=== PATIENT | female | born 1985 | race Caucasian/White ===

== ENCOUNTER → 2018-04-26 09:14 | Outpatient (CLI) | payer MEDICARE, OTHER, SELFPAY ==
--- NOTE | 2018-04-26 09:23 | XR_ITS ---
XR foot LT min 3V HISTORY: ITS.REASON: LEFT FOOT PAIN ORDERING PHYSICIAN: Marianna Orozco PATIENT AGE: 32 years COMPARISON: Left foot 03/05/2012 FINDINGS: No fracture or dislocation. No lytic or blastic change. There is normal mineralization.. The joint spaces are well-preserved. No significant degenerative/arthritic changes. No erosive changes evident. There is mild soft tissue swelling over the MP joint of the little toe IMPRESSION: Possible bunion at little toe, otherwise negative study
== END ==
PROVIDERS: PCP Family Medicine; Visit Provider Family Medicine
DX: M79.672 Pain in left foot (principal)
CPT/HCPCS: 73630

== ENCOUNTER → 2018-06-17 08:56 | Outpatient (CLI) | payer MEDICARE, OTHER, SELFPAY ==
--- NOTE | 2018-06-17 08:58 | XR_ITS ---
XR foot wt bearing LT 3V HISTORY: ITS.REASON: pain ORDERING PHYSICIAN: Angela Maloney DPM PATIENT AGE: 32 years COMPARISON: 03/05/2012 FINDINGS: No fracture or dislocation. No lytic or blastic change. There is normal mineralization.. The joint spaces are well-preserved. No significant degenerative/arthritic changes. No erosive changes evident. There is mild pes planus IMPRESSION: Mild pes planus otherwise negative
--- NOTE | 2018-06-17 08:58 | XR_ITS ---
XR foot wt bearing RT 3V HISTORY: ITS.REASON: pain ORDERING PHYSICIAN: Angela Maloney DPM PATIENT AGE: 32 years COMPARISON: None FINDINGS: No fracture or dislocation. No lytic or blastic change. There is normal mineralization.. The joint spaces are well-preserved. Bony hypertrophic changes are present along the anterior distal aspect of the talus. Minimal pes planus. IMPRESSION: Bony spurring along the distal and dorsal aspect of the talus with mild pes planus
== END ==
PROVIDERS: Visit Provider Podiatrist
DX: M79.673 Pain in unspecified foot (principal)
CPT/HCPCS: 73630

== ENCOUNTER → 2018-09-09 10:31 | Outpatient (CLI) | payer MEDICARE, OTHER, SELFPAY ==
--- NOTE | 2018-09-09 10:35 | MR_ITS ---
MR foot LT wo/w con HISTORY: Left lateral foot pain, ganglion cyst ITS.REASON: Ganglion Cyst ORDERING PHYSICIAN: Angela Maloney DPM PATIENT AGE: 33 years Comparison: 07/05/2019 TECHNIQUE: Standard multiplanar multiecho sequences are performed without contrast. FINDINGS: No fracture or dislocation. No bone marrow edema. There is a small amount of fluid in the ankle joint at the tibiotalar region anteriorly and at the posterior talocalcaneal joint. Although the study is not tailored to the ankle, the ATFL is not well delineated and may be due to chronic tear. The anterior tibial fibular ligament is also not well delineated. The posterior talofibular and posterior tibiofibular ligaments are intact. The deltoid ligament also appears intact. The talar dome has an unremarkable appearance. There is a focal small area of fluid signal intensity along the dorsolateral aspect and proximal aspect of the fourth metatarsal which measures approximately 11 mm. This is superficial to the extensor digitorum longus tendon. This is isointense on T1 and shows some minimal peripheral enhancement. There is small septation within this lesion. This is consistent with a ganglion cyst. No other significant anomalies are evident. IMPRESSION: 1. Ganglion cyst at the dorsal lateral and base of the fourth metatarsal superficial to the extensor digitorum longus tendon 2. Small ankle joint effusion. 3. The 8 FL and anterior tibiofibular ligaments are not well demonstrated. Chronic tear is a consideration. If this is of clinical concern, dedicated MRI of the ankle may confirm.
== END ==
PROVIDERS: PCP Family Medicine; Visit Provider Podiatrist
DX: M67.472 Ganglion, left ankle and foot (principal)
CPT/HCPCS: 73720; A9576

== ENCOUNTER 2019-01-30 13:00 | Outpatient (RCR) | payer MEDICARE, MEDICAID, OTHER, SELFPAY ==
--- NOTE | 2019-01-28 10:55 | HMH.PTOPWND ---
Rehab Outpt Wound Evaluation Rehab OP Wound Evaluation Start: 01/28/19 10:17 Freq: Status: Active Protocol: Document 01/28/19 10:48 FOX (Rec: 01/28/19 10:55 PHOBERONICA [id number]) Electronically Signed By Chaitanya Case, PT 01/28/19 10:48 Subjective/History History History Pt is a 33 yowf who presents with c/o antwon LE edema for unknown period of time with insidious onset of symptoms. She reports no current c/o pain or numbness/tingling. She reports mild tenderness to palpation throughout the gaitor area of antwon LE with multiple small varicosities noted. She reports PMH of Hypothyroid and left foot ganglion cyst. Pt is also obese. Lymphedema Eval Classification of Lymphedema Secondary Lymphedema Yes Stemmer's sign Stemmer's Sign no Stage of Lymphedema Lymphedema stages Stage I (Pitting edema, reduces w/ elevation, no fibrosis) Skin Changes Dry Skin Yes Other Changes Yes Pain Scale Pain Scale (0-10) 0 Affected Extremities Areas Affected by Lymphedema/Edema Right Lower Extremity Left Lower Extremity Manual Lymphatic Drainage Treatment Area MLD Treatment Area Right Lower Extremity Left Lower Extremity Wound Problems/Impairments Impairments Problems/Impairmments Palpation Tenderness Impaired Walking Increased Edema Lymphedema Present Subjective C/O Pain Impaired Self Care/Self Management Prognosis Rehab Potential Fair Clinical Impression Consistent with Diagnosis Yes Short Term Goals Number of Weeks 4 Decreased Palpation Tenderness Yes: to min Patient to Understand Lymphedema Yes Treatment and Exercises Decrease Girth Measurments by (cm) Yes: by 5 cm [employer] Goals Number of Weeks 8 Decreased Palpation Tenderness Yes: to none Patient to be Ind w/ HEP Yes Patient to be Ind w/ [place] Yes Compression Garments Patient to Adhere Lymphedema Precautions Yes Decrease Girth Measurments by (cm) Yes: by 15 cm Outpatient Therapy Plan of Care Treatment Plan May Include Therapeutic Exercise Including Home
== END 2019-01-30 13:05 | disposition home or self-care (01) ==
LOC: PT 13:00
PROVIDERS: Visit Provider Podiatrist
DX: I89.0 Lymphedema, not elsewhere classified (principal)
CPT/HCPCS: 97140; 97162

== ENCOUNTER → 2019-02-19 10:05 | Outpatient (CLI) | payer MEDICARE, MEDICAID, OTHER, SELFPAY ==
--- NOTE | 2019-02-19 10:10 | US_ITS ---
US extremity RT limited CLINICAL INDICATION: ITS.REASON: SOFT TISSUE NEOPLASM OF RT CALF ORDERING PHYSICIAN: Marianna Orozco PATIENT AGE: 33 years Comparison: None FINDINGS: There is a palpable area reported in posterior right calf. There is mild subcutaneous edema along with some nonspecific diffuse increased echogenicity. This is nonspecific. Consider MRI or CT for more thorough evaluation. IMPRESSION: Nonspecific findings with subcutaneous edema and mild diffuse increased echogenicity corresponding to the area of reported palpable abnormality. Recommend MRI or CT without and with contrast for evaluation
== END ==
PROVIDERS: PCP Family Medicine; Visit Provider Family Medicine
DX: R22.41 Localized swelling, mass and lump, right lower limb
CPT/HCPCS: 76882

== ENCOUNTER → 2019-04-29 17:52 | Outpatient (CLI) | payer MEDICARE, MEDICAID, OTHER, SELFPAY ==
[2019-04-29 18:21] LABS: Basophils % 0.5 % (0.1-2.0); Eosinophils # 0.2 K/mm3 (0.0-0.4); Hematocrit 41.2 % (37.0-47.0); Lymphocytes % 18.4 % (10-50); Mean Corpuscular HGB Conc 31.6 g/dL (31.8-35.4); Mean Corpuscular Hemoglobin 29.4 pg (27.0-31.2); Mean Platelet Volume 8.6 fl (7.4-10.4); Monocytes # 0.3 K/mm3 (0.1-1.0); Monocytes % 5.3 % (1.7-9.3); Neutrophils # 3.9 K/mm3 (1.8-7.8); Neutrophils % 71.9 % (37.0-80.0); Platelet Count 249 K/mm3 (142-424); Red Blood Count 4.43 M/mm3 (4.20-5.40); Red Cell Distribution Width 12.9 % (11.5-17.5); White Blood Count 5.4 K/mm3 (4.8-10.8)
[2019-04-29 19:31] LABS: Alanine Aminotransferase 26 U/L (12-78); Albumin/Globulin Ratio 1.2 (1.1-1.8); Alkaline Phosphatase 82 U/L (46-116); Anion Gap 16.2 mEq/L (5-15); Bilirubin,Total 0.3 mg/dL (0.2-1.0); Blood Urea Nitrogen 9 mg/dL (7-18); Calcium 8.9 mg/dL (8.5-10.1); Carbon Dioxide 25 mmol/L (21.0-32.0); Chloride 102 mmol/L (98-107); Chol/HDL Ratio 3.6 (1-3.5); Cholesterol 174 mg/dL (140-200); Creatinine,Serum 0.46 mg/dL (0.55-1.02); Estimated Glomerular Filt Rate 156 ml/min (>60); Free T4 (Free Thyroxine) 1.22 ng/dl (0.76-1.46); GFR (African American) 189 ML/MIN (>60); Globulin 3.4 gm/dl (1.3-3.2); Glucose 83 mg/dL (74-106); HDL Cholesterol 49 mg/dL (29-89); LDL Cholesterol 104 mg/dL (0-130); Potassium 4.2 mmoL/L (3.5-5.1); Sodium 139 mmol/L (136-145); Thyroid Stimulating Hormone 1.21 uIU/ml (0.358-3.740); Total Protein,Serum 7.4 gm/dL (6.4-8.2); Triglycerides 103 mg/dL (30-200); VLDL Cholesterol 21 mg/dL (0-40)
[2019-04-29 19:32] LABS: Aspartate Amino Transferase 23 U/L (15-37)
== END ==
PROVIDERS: Visit Provider Emergency Medicine
DX: E03.9 Hypothyroidism, unspecified (principal)
CPT/HCPCS: 80053; 80061; 84439; 84443; 85025

== ENCOUNTER → 2020-06-25 12:24 | Outpatient (CLI) | payer MEDICARE, MEDICAID, SELFPAY ==
--- NOTE | 2020-06-25 12:29 | XR_ITS ---
PROCEDURE: XR FOOT RT MIN 3V CLINICAL INDICATION: right foot pain COMPARISON: No exams were available for comparison FINDINGS: There is focal cortical irregularity of the anterior superior border of calcaneus near the calcaneal navicular articulation. This could represent an osteophytic spur but old incompletely fused avulsion chip fracture is a possibility. Otherwise the tarsal bones appear intact. The metatarsals and phalanges all appear intact. The plantar arch is normal. There is a tiny spur of the calcaneus at the insertion of Achilles tendon. IMPRESSION: Osteophytic spurring versus posttraumatic change anterior superior border of the calcaneus Dictated by: Dr. Kyle Painter MD 06/25/2020 13:20 Dr. Kyle Painter MD in [place] 06/25/2020 13:20
[2020-06-25 15:31] LABS: Basophils % 0.4 % (0.1-2.0); Eosinophils # 0.2 K/mm3 (0.0-0.4); Eosinophils % 3.9 % (0.1-12.0); Hematocrit 37.7 % (37.0-47.0); Hemoglobin 12.7 g/dL (12.2-16.2); Lymphocytes # 0.8 K/mm3 (0.7-4.5); Mean Corpuscular HGB Conc 33.6 g/dL (31.8-35.4); Mean Corpuscular Hemoglobin 30.7 pg (27.0-31.2); Mean Corpuscular Volume 91.4 fl (81-99); Mean Platelet Volume 8.7 fl (7.4-10.4); Monocytes # 0.3 K/mm3 (0.1-1.0); Monocytes % 5.4 % (1.7-9.3); Neutrophils # 3.5 K/mm3 (1.8-7.8); Neutrophils % 74.3 % (37.0-80.0); Platelet Count 212 K/mm3 (142-424); Red Blood Count 4.12 M/mm3 (4.20-5.40); Red Cell Distribution Width 12.8 % (11.5-17.5); White Blood Count 4.6 K/mm3 (4.8-10.8)
[2020-06-25 15:46] LABS: Alanine Aminotransferase 13 U/L (12-78); Albumin/Globulin Ratio 1.4 (1.1-1.8); Alkaline Phosphatase 78 U/L (38-126); Anion Gap 12.4 mEq/L (5-15); Aspartate Amino Transferase 26 U/L (14-36); Bilirubin,Total 0.5 mg/dl (0.2-1.3); Blood Urea Nitrogen 9 mg/dl (7-17); Calcium 9.1 mg/dl (8.4-10.2); Carbon Dioxide 25 mmol/L (22.0-30.0); Chloride 104 mmol/L (98-107); Chol/HDL Ratio 2.8 (1-3.5); Cholesterol 167 mg/dl (140-200); Estimated Glomerular Filt Rate 182 ml/min (>60); GFR (African American) 220 ML/MIN (>60); Globulin 2.9 g/dL (1.3-3.2); Glucose 104 mg/dl (74-100); HDL Cholesterol 60 mg/dl (40-60); Potassium 4.4 mmoL/L (3.5-5.1); Sodium 137 mmol/L (136-145); Total Protein,Serum 6.9 g/dl (6.3-8.2); Triglycerides 62 mg/dl (30-150); VLDL Cholesterol 12 mg/dL (0-40)
[2020-06-25 15:57] LABS: Direct LDL Cholesterol 99.34 mg/dL (100-129)
[2020-06-25 16:03] LABS: T4 (Thyroxine) 8.5 ug/dl (5.53-11.0)
[2020-06-25 16:17] LABS: Thyroid Stimulating Hormone 2.91 uIU/mL (0.465-4.68)
== END ==
PROVIDERS: PCP Emergency Medicine; Visit Provider Emergency Medicine
DX: M79.671 Pain in right foot (principal); E07.9 Disorder of thyroid, unspecified; E55.9 Vitamin D deficiency, unspecified; E03.9 Hypothyroidism, unspecified; E66.9 Obesity, unspecified
CPT/HCPCS: 73630; 80053; 80061; 82306; 84436; 84443; 85025

== ENCOUNTER → 2021-05-31 09:12 | Outpatient (CLI) | payer MEDICARE, MEDICAID, SELFPAY ==
[2021-05-31 09:48] LABS: Basophils % 0.5 % (0.1-2.0); Eosinophils # 0.5 K/mm3 (0.0-0.4); Eosinophils % 8.5 % (0.1-12.0); Hematocrit 39.6 % (37.0-47.0); Hemoglobin 12.5 g/dL (12.2-16.2); Lymphocytes % 17.9 % (10-50); Mean Corpuscular HGB Conc 31.5 g/dL (31.8-35.4); Mean Corpuscular Hemoglobin 28.7 pg (27.0-31.2); Mean Corpuscular Volume 91.2 fl (81-99); Mean Platelet Volume 8.1 fl (7.4-10.4); Monocytes # 0.4 K/mm3 (0.1-1.0); Monocytes % 6.5 % (1.7-9.3); Neutrophils # 3.6 K/mm3 (1.8-7.8); Neutrophils % 66.6 % (37.0-80.0); Platelet Count 196 K/mm3 (142-424); Red Blood Count 4.34 M/mm3 (4.20-5.40); Red Cell Distribution Width 12.6 % (11.5-17.5); White Blood Count 5.4 K/mm3 (4.8-10.8)
[2021-05-31 10:58] LABS: Alanine Aminotransferase 13 U/L (12-78); Albumin Level 4.2 g/dl (3.5-5.0); Albumin/Globulin Ratio 1.5 (1.1-1.8); Alkaline Phosphatase 67 U/L (38-126); Anion Gap 10.3 mEq/L (5-15); Aspartate Amino Transferase 22 U/L (14-36); Bilirubin,Total 0.6 mg/dl (0.2-1.3); Blood Urea Nitrogen 7 mg/dl (7-17); Calcium 8.8 mg/dl (8.4-10.2); Carbon Dioxide 26 mmol/L (22.0-30.0); Chloride 106 mmol/L (98-107); Chol/HDL Ratio 3.3 (1-3.5); Cholesterol 179 mg/dl (140-200); Estimated Glomerular Filt Rate 140 ml/min (>60); GFR (African American) 170 ML/MIN (>60); Globulin 2.8 g/dL (1.3-3.2); Glucose 100 mg/dl (74-100); HDL Cholesterol 55 mg/dl (40-60); Potassium 4.3 mmoL/L (3.5-5.1); Sodium 138 mmol/L (136-145); Triglycerides 60 mg/dl (30-150); VLDL Cholesterol 12 mg/dL (0-40)
[2021-05-31 11:09] LABS: Direct LDL Cholesterol 101.48 mg/dL (100-129)
[2021-05-31 11:11] LABS: Free T4 (Free Thyroxine) 1.49 ng/dl (0.78-2.19)
[2021-05-31 11:26] LABS: 25-OH Vitamin D, Total 32.2 ng/mL (30-100)
[2021-05-31 11:28] LABS: Thyroid Stimulating Hormone 2.94 uIU/mL (0.465-4.68)
== END ==
PROVIDERS: Visit Provider Emergency Medicine
DX: E66.01 Morbid (severe) obesity due to excess calories (principal); R53.83 Other fatigue; Z68.44 Body mass index [BMI] 60.0-69.9, adult; K59.00 Constipation, unspecified; E03.9 Hypothyroidism, unspecified; E55.9 Vitamin D deficiency, unspecified
CPT/HCPCS: 36415; 80053; 80061; 82306; 84439; 84443; 85025

== ENCOUNTER → 2022-01-31 14:32 | Outpatient (CLI) | payer MEDICARE, MEDICAID, SELFPAY ==
--- NOTE | 2022-01-31 14:42 | US_ITS ---
FINAL REPORT CLINICAL HISTORY: LLE nodule above inner ankle FINDINGS: Limited sonographic images of the medial ankle were obtained. No cyst, mass, or fluid collection is identified in the area of interest. IMPRESSION: No abnormality identified. Reviewed, Interpreted and Dictated by Antolin Hunter III, MD Transcribed by Dona Saini Authenticated by Antolin Hunter III, MD on 02/01/2022 09:55:26 AM [facility]
== END ==
PROVIDERS: PCP Emergency Medicine; Visit Provider Nurse Practitioner Family
DX: R22.42 Localized swelling, mass and lump, left lower limb (principal)
CPT/HCPCS: 76882

== ENCOUNTER → 2022-02-27 12:30 | Outpatient (CLI) | payer MEDICARE, MEDICAID, SELFPAY ==
[2022-02-27 13:49] LABS: Alanine Aminotransferase 20 U/L (12-78); Albumin Level 4.1 g/dl (3.5-5.0); Albumin/Globulin Ratio 1.6 (1.1-1.8); Alkaline Phosphatase 63 U/L (38-126); Anion Gap 8.8 mEq/L (5-15); Aspartate Amino Transferase 19 U/L (14-36); Bilirubin,Total 0.5 mg/dl (0.2-1.3); Blood Urea Nitrogen 10 mg/dl (7-17); Calcium 8.8 mg/dl (8.4-10.2); Carbon Dioxide 24 mmol/L (22.0-30.0); Chloride 109 mmol/L (98-107); Chol/HDL Ratio 2.7 (1-3.5); Cholesterol 191 mg/dl (140-200); Estimated Glomerular Filt Rate 140 ml/min (>60); GFR (African American) 169 ML/MIN (>60); Globulin 2.6 g/dL (1.3-3.2); Glucose 98 mg/dl (74-100); HDL Cholesterol 70 mg/dl (40-60); Potassium 3.8 mmoL/L (3.5-5.1); Sodium 138 mmol/L (136-145); Total Protein,Serum 6.7 g/dl (6.3-8.2); Triglycerides 68 mg/dl (30-150); VLDL Cholesterol 14 mg/dL (0-40)
[2022-02-27 14:00] LABS: Direct LDL Cholesterol 89.41 mg/dL (100-129)
[2022-02-27 14:04] LABS: Free T4 (Free Thyroxine) 1.46 ng/dl (0.78-2.19)
[2022-02-27 14:19] LABS: Thyroid Stimulating Hormone 1.57 uIU/mL (0.465-4.68)
== END ==
PROVIDERS: Visit Provider Family Medicine
DX: Z00.00 Encounter for general adult medical examination without abnormal findings (principal); E03.9 Hypothyroidism, unspecified; E66.01 Morbid (severe) obesity due to excess calories; Z68.44 Body mass index [BMI] 60.0-69.9, adult
CPT/HCPCS: 36415; 80053; 80061; 84439; 84443

== ENCOUNTER → 2022-08-11 15:30 | Outpatient (CLI) | payer MEDICARE, MEDICAID, SELFPAY ==
[2022-08-11 18:45] LABS: Influenza A, PCR Not Detected (NotDetected); Influenza B, PCR Not Detected (NotDetected)
[2022-08-11 20:44] LABS: Coronavirus 19, PCR Detected (NotDetected)
== END ==
PROVIDERS: PCP Student in an Organized Health Care Education/Training Program; Visit Provider Student in an Organized Health Care Education/Training Program
DX: J39.8 Other specified diseases of upper respiratory tract (principal); R05.9 Cough, unspecified; U07.1 COVID-19
CPT/HCPCS: C9803; U0003; U0005

== ENCOUNTER 2024-01-28 13:49 | Outpatient (CLI) | payer MEDICARE, MEDICAID, SELFPAY ==
[2024-01-28 13:29] LABS: Basophils % 0.6 % (0.1-2.0); Eosinophils # 0.5 K/mm3 (0.0-0.4); Eosinophils % 10.4 % (0.1-12.0); Hematocrit 38.2 % (37.0-47.0); Hemoglobin 12.5 g/dL (12.2-16.2); Lymphocytes # 0.9 K/mm3 (0.7-4.5); Lymphocytes % 20.4 % (10-50); Mean Corpuscular HGB Conc 32.7 g/dL (31.8-35.4); Mean Corpuscular Volume 91.8 fl (81-99); Mean Platelet Volume 8.8 fl (7.4-10.4); Monocytes # 0.3 K/mm3 (0.1-1.0); Monocytes % 6.3 % (1.7-9.3); Neutrophils # 2.7 K/mm3 (1.8-7.8); Neutrophils % 62.3 % (37.0-80.0); Platelet Count 198 K/mm3 (142-424); Red Blood Count 4.16 M/mm3 (4.20-5.40); Red Cell Distribution Width 13.3 % (11.5-17.5); White Blood Count 4.3 K/mm3 (4.8-10.8)
[2024-01-28 14:06] LABS: Hemoglobin A1C 5.4 % (4.0-6.0)
[2024-01-28 14:29] LABS: Alanine Aminotransferase 12 U/L (12-78); Albumin Level 4.2 g/dl (3.5-5.0); Albumin/Globulin Ratio 1.6 (1.1-1.8); Alkaline Phosphatase 75 U/L (38-126); Aspartate Amino Transferase 21 U/L (14-36); Bilirubin,Total 0.5 mg/dl (0.2-1.3); Blood Urea Nitrogen 8 mg/dl (7-17); Calcium 9.2 mg/dl (8.4-10.2); Carbon Dioxide 24 mmol/L (22.0-30.0); Chloride 105 mmol/L (98-107); Estimated Glomerular Filt Rate 138 ml/min (>60); GFR (African American) 167 ML/MIN (>60); Globulin 2.6 g/dL (1.3-3.2); Glucose 88 mg/dl (74-100); Sodium 137 mmol/L (136-145); Total Protein,Serum 6.8 g/dl (6.3-8.2)
[2024-01-28 14:58] LABS: Thyroid Stimulating Hormone 1.49 uIU/mL (0.465-4.68)
== END 2024-01-28 23:59 ==
LOC: LAB.DROPOF 13:50
PROVIDERS: PCP Internal Medicine; Visit Provider Internal Medicine
DX: R53.83 Other fatigue (principal); E03.9 Hypothyroidism, unspecified; R73.09 Other abnormal glucose; E55.9 Vitamin D deficiency, unspecified; E05.90 Thyrotoxicosis, unspecified without thyrotoxic crisis or storm; Z68.44 Body mass index [BMI] 60.0-69.9, adult
CPT/HCPCS: 80053; 82306; 83036; 84443; 85025

== ENCOUNTER 2025-01-28 09:48 | Outpatient (CLI) | payer MEDICARE, MEDICAID, SELFPAY ==
[2025-01-28 10:03] LABS: Basophils % 0.7 % (0.1-2.0); Eosinophils # 0.4 K/mm3 (0.0-0.4); Hematocrit 35.8 % (37.0-47.0); Hemoglobin 11.9 g/dL (12.2-16.2); Lymphocytes # 0.8 K/mm3 (0.7-4.5); Lymphocytes % 19.1 % (10-50); Mean Corpuscular HGB Conc 33.2 g/dL (31.8-35.4); Mean Corpuscular Hemoglobin 28.5 pg (27.0-31.2); Mean Corpuscular Volume 85.9 fl (81-99); Mean Platelet Volume 9.6 fl (7.4-10.4); Monocytes # 0.3 K/mm3 (0.1-1.0); Monocytes % 7.7 % (1.7-9.3); Neutrophils # 2.7 K/mm3 (1.8-7.8); Neutrophils % 62.3 % (37.0-80.0); Platelet Count 175 K/mm3 (142-424); Red Blood Count 4.17 M/mm3 (4.20-5.40); Red Cell Distribution Width 12.3 % (11.5-17.5); White Blood Count 4.4 K/mm3 (4.8-10.8)
[2025-01-28 10:34] LABS: Alanine Aminotransferase 14 U/L (12-78); Albumin Level 4.3 g/dl (3.5-5.0); Albumin/Globulin Ratio 1.8 (1.1-1.8); Alkaline Phosphatase 62 U/L (38-126); Aspartate Amino Transferase 21 U/L (14-36); Bilirubin,Total 0.6 mg/dl (0.2-1.3); Blood Urea Nitrogen 7 mg/dl (7-17); Calcium 9.2 mg/dl (8.4-10.2); Carbon Dioxide 25 mmol/L (22.0-30.0); Chloride 104 mmol/L (98-107); Chol/HDL Ratio 3.5 (1-3.5); Cholesterol 163 mg/dl (140-200); Estimated Glomerular Filt Rate 137 ml/min (>60); GFR (African American) 166 ML/MIN (>60); Globulin 2.4 g/dL (1.3-3.2); Glucose 93 mg/dl (74-100); HDL Cholesterol 46 mg/dl (40-60); Sodium 138 mmol/L (136-145); Total Protein,Serum 6.7 g/dl (6.3-8.2); Triglycerides 92 mg/dl (30-150); VLDL Cholesterol 18 mg/dL (0-40)
[2025-01-28 10:45] LABS: Direct LDL Cholesterol 84.31 mg/dL (100-129)
[2025-01-28 10:52] LABS: 25-OH Vitamin D, Total 37.7 ng/mL (30-100)
[2025-01-28 12:26] LABS: Hemoglobin A1C 5.5 % (4.0-6.0)
[2025-01-29 14:11] LABS: Iron 95 ug/dL (37-170)
[2025-01-29 14:21] LABS: Total Iron Binding Capacity 319 ug/dL (265-497)
[2025-01-29 14:47] LABS: Ferritin 26.4 ng/ml (6.24-137)
== END 2025-01-28 23:59 | disposition home or self-care (01) ==
LOC: LAB 09:49
PROVIDERS: PCP Family Medicine; Visit Provider Family Medicine
DX: E03.9 Hypothyroidism, unspecified (principal); E66.01 Morbid (severe) obesity due to excess calories; Z68.44 Body mass index [BMI] 60.0-69.9, adult; E55.9 Vitamin D deficiency, unspecified; Z13.1 Encounter for screening for diabetes mellitus; N64.9 Disorder of breast, unspecified; D64.9 Anemia, unspecified
CPT/HCPCS: 36415; 80053; 80061; 82306; 82728; 83036; 83540; 83550; 84443; 85025

== ENCOUNTER 2025-02-10 14:34 | Outpatient (CLI) | payer MEDICARE, MEDICAID, SELFPAY ==
--- NOTE | 2025-02-10 15:00 | US_ITS ---
PROCEDURE INFORMATION: Exam: US Right Breast, Complete Exam date and time: 02/10/2025 3:55 PM Age: 39 years old Clinical indication: History of redness at the 12 o'clock nipple region. TECHNIQUE: Imaging protocol: Complete ultrasound of all four quadrants of the right breast and the retroareolar regions, including ultrasound of the axilla when performed. COMPARISON: No relevant prior studies available. FINDINGS: ULTRASOUND: Breast ultrasound findings: Ultrasound of the right breast is performed. In the 12 o'clock retroareolar region, in the prior area redness, there is no underlying mass, shadowing, or distortion. No skin abnormality. No right breast mass, or other abnormality throughout. No axillary adenopathy. IMPRESSION: 1. No sonographic evidence of malignancy. Continued clinical monitoring for any skin changes is recommended, with repeat imaging if necessary. 2. Annual bilateral mammographic screening is recommended to commence at the age of 40 unless otherwise clinically indicated. ASSESSMENT: BI-RADS Category 1: Negative.
--- OUTSIDE RECORDS SUMMARY | 2025-02-12 21:33 | XMS_ITS ---
Author Organization Unknown TREATMENT PLAN [facility] Start Date Provider Encounter for Check-up [id number] [facility]
== END 2025-02-10 23:59 | disposition home or self-care (01) ==
LOC: RAD 14:34
PROVIDERS: PCP Obstetrics & Gynecology; Visit Provider Obstetrics & Gynecology
DX: N64.59 Other signs and symptoms in breast (principal)
CPT/HCPCS: 76641

== ENCOUNTER 2025-02-18 09:08 | Outpatient (CLI) | payer MEDICARE, MEDICAID, SELFPAY ==
--- NOTE | 2025-02-18 | CA_ITS ---
APPROVED REPORT Exam: Pharmacologic Technologist: Debbie Magana Ht: 5 ft 4 in Wt: 376 lbs BSA: 2.56 m2 HR: 66 bpm BP: 145/73 mmHg Stress Test Details Test: Lexiscan HR Resting HR: 66 bpm Max Heart Rate (APMHR): 181.675099 bpm Max HR Achieved: 98 bpm Target HR (85% APMHR): 153.035834 bpm % of APMHR: 54.14 Recovery HR: 86 bpm BP Resting BP: 145.0/73.0 mmHg Max BP: 149.0/78.0 mmHg Recovery BP: 140.0/78.0 mmHg ECG Resting ECG: Sinus rhythm, no ischemia or ectopy Stress ECG Conclusion Symptoms: None Arrhythmias/Ectopy: None ST-T Changes: Lexiscan Electronically signed by : Tsering Quintana MD 02/22/2025 21:51:39
--- NOTE | 2025-02-18 09:11 | CA_ITS ---
APPROVED REPORT EXAM: Comprehensive 2D, Doppler, and color-flow Echocardiogram Artificial Intelligence Specialist: RONAL Granados, RVS Ht: 5 ft 4 in Wt: 376lbs BSA: 2.56 BP: 151/81 mmHg Indications: Dyspnea,obesity, Abn EKG, Tachycardia Echo Enhancing Agent Comments: TDS due to limited windows 2D Dimensions IVSd 1.10 cm LVEF (Visual) 56.90 % PWd 0.94 cm LA Volume 107.70 mL LVDd 4.42 cm LA Volume Index 41.10 mL/m2 (M/F) 16-34 LVDs 3.11 cm Left Atrium 4.35 cm M-Mode Dimensions RVDd 2.40 cm (0.9-2.6) LA Diam 4.37 cm (1.9-4.0) LVDd 5.60 cm (3.5-5.7) LVDs 3.62 cm (3.5-5.7) IVSd 0.91 cm (0.6-1.1) PWd 0.95 cm (0.6-1.1) EF (Teich) 64.10% EPSs 0.79 cm FS 35.40% EDV (Teich) 153.70 mL TAPSE 3.09 (<1.7) ESV (Teich) 55.20 mL LV Diastology E Decel Time 273 (160-240 msec) E/A Ratio 1.56 MED A' 8.60 cm/s LAT A' 9.90 cm/s Aortic Valve MAGDIEL Index 1.14 cm2/m2 AoV Peak Tim. 169.0 (50-130 cm/s) AO Peak GR. 11.40 mmHg AO Mean GR. 5.60 (<5 mmHg) AO VTI 38.6 (18-25 cm) MAGDIEL (VTI) 2.99 (2.5-4.5 cm2) Mitral Valve MV A Velocity 62.0 (40-130 cm/s) E/A Ratio 1.56 Left Ventricle The left ventricle is normal size. The left ventricular systolic function is normal. The left ventricular ejection fraction is within the normal range. There is normal left ventricular wall thickness. There is normal LV segmental wall motion. The left ventricular diastolic function is normal. LVEF is 55%. Right Ventricle The right ventricle is normal size. The right ventricular systolic function is normal. Atria The left atrium size is normal. The right atrium size is normal. There is no Doppler evidence of interatrial shunt. Aortic valve opens well. Aortic Valve There is no aortic valvular stenosis. No aortic regurgitation is present. Mitral Valve The mitral valve is normal in structure. No evidence of mitral valve stenosis. Trace mitral regurgitation. Tricuspid Valve Tricuspid valve is grossly normal in structure and function. Trace tricuspid regurgitation. There is insufficient TR jet to estimate RVSP. Pulmonic Valve The pulmonary valve is normal in structure. Trace pulmonic regurgitation. Great Vessels The aortic root is normal in size. IVC is normal in size and collapses >50% with inspiration. Pericardium There is no pericardial effusion. Other Information Study Quality: Fair Conclusion Normal biventricular systolic function. No significant valvular stenosis or regurgitation. Electronically signed by : Tsering Quintana MD 02/21/2025 00:57:51
--- NOTE | 2025-02-18 11:30 | NM_ITS ---
APPROVED REPORT Exam: Nuclear Stress Test Indication: SOB, Abnormal EKG Patient Location: Outpatient Stress Tech: Debbie Magana AR Tech:Sherrie Agarwal, KATHRYNT, RT (R)(N) Ht: 5 ft 4 in Wt: 375 lbs Bra Size: DD HR: 66 bpm BP: 145/73 mmHg BSA: 2.56 m2 TID: 1.11 BMI: 64.3 History: SOB, Abnormal EKG Procedure: Patient received 0.4 mg of intravenous Lexiscan, resting heart rate 66 bpm, resting blood pressure 145/73 mmHg, with Lexiscan maximum heart rate achieved was 108 bpm which is % of the maximum predicted heart rate and blood pressure was 149/78 mmHg. With Lexiscan, patient denied any complaint of chest pain. Cardiac Stress and Resting SPECT Images: Cardiac Stress and Resting SPECT images were obtained using technetium 99m Myoview 30.1 mCi stress and 10.09 mCi at rest. The patient is unable to lie on her abdomen. Therefore, prone stress imaging cannot be performed. This may affect the diagnostic interpretation of the study findings. Technically difficult study due to significant soft tissue overlap with the cardiac borders. Resting and stress imaging in supine positions demonstrate a medium sized, moderate, partially reversible perfusion defect in the basal to mid lateral LV wall. Gated imaging demonstrates normal global LV systolic function. LVEF is calculated at 64%. Conclusion: Technically difficult study. Medium sized, moderate, partially reversible perfusion defect in the basal to mid lateral LV wall. Findings are suggestive of partial reversible ischemia. Gated imaging demonstrates normal global LV systolic function. LVEF is calculated at 64%. Electronically signed by : Tsering Quintana MD 02/19/2025 14:13:31
== END 2025-02-18 23:59 | disposition home or self-care (01) ==
LOC: RT 09:08
PROVIDERS: PCP Internal Medicine; Visit Provider Nurse Practitioner
DX: R94.31 Abnormal electrocardiogram [ECG] [EKG] (principal)
CPT/HCPCS: 78452; 93017; 93018; 93306

== ENCOUNTER 2025-03-24 08:44 | Outpatient (CLI) | payer MEDICARE, MEDICAID, SELFPAY ==
[2025-03-24 08:52] VITALS: BMI 63.6
[2025-03-24 08:58] VITALS: BP 160/77; PULSE 89; RESP 17; O2SAT 97
[2025-03-24] MEDS: IVABRADINE HCL 7.5MG TABLET PO (09:10)
[2025-03-24] MEDS: METOPROLOL TARTRATE 50MG TABLET PO (09:11)
[2025-03-24 09:21] LABS: Chloride 106 mmol/L (98-107); Potassium 3.8 mmoL/L (3.5-5.1); Sodium 137 mmol/L (136-145)
[2025-03-24 09:24] LABS: Anion Gap 7.8 mEq/L (5-15); Blood Urea Nitrogen 9 mg/dl (7-17); Carbon Dioxide 27 mmol/L (22.0-30.0); Creatinine Clearance Estimated 130 mL/min (50-200); Estimated Glomerular Filt Rate 137 ml/min (>60); GFR (African American) 166 ML/MIN (>60)
[2025-03-24 09:25] LABS: Calcium 9.2 mg/dl (8.4-10.2); Glucose 100 mg/dl (74-100)
[2025-03-24 09:31] LABS: HCG Qualitative, Serum Negative (Negative)
--- NOTE | 2025-03-24 10:00 | CT_ITS ---
APPROVED REPORT Linen Aide: CLINICAL INDICATION Chest Pain TECHNIQUE Image Acquisition: A 128 slice MDCT scanner (Jellyvisiona View) was used for data acquisition. A noncontrast coronary calcium scan was performed. A CT attenuation threshold of 130 Hounsfield units (HU) was used for the detection of calcium in contiguous voxels of 1 sq mm in area to be counted as individual lesions. Bolus tracking in the ascending aorta with a threshold of 180 HU was performed. Immediately afterwards, ECG synchronized cardiac CT was then performed from the cardiac base to apex using retrospective gating with ECG tube current modulation. A total of 85 mL of Isovue 370 mg/mL contrast medium was administered at 5 mL/sec followed by a saline flush using a biphasic injection protocol. A tube voltage of 120 KVp was used. The patient received the following medications prior to the cardiac CT. 75 mg of oral metoprolol 15 mg of oral ivabradine 0.4 mg of sublingual nitroglycerin The average heart rate at the time of acquisition was 76 bpm and regular. Image Reconstruction Transaxial images were reconstructed at 0.67 mm slide thickness. Data was reviewed interactively on an advanced workstation capable of 2 and 3-dimensional displays in all conventional reconstruction formats, including multiplanar reformations, maximum intensity projections, curved multiplanar reformations, and volume rendered reconstructions. When applicable, selected routine images describing the relevant coronary anatomy and pathology were saved and sent to PACS. Complications None Technical Quality Overall image quality was fair. Coronary artery opacification was fair. Total DLP (Dose-Length Product) is 1955.1 mGy-cm. The reported value represents the total of one or more individual components during the CT acquisition of this date and at this time, and as such, the same value may appear in more than one CT report depending on the interpreting/reporting physicians. COMPARISON None FINDINGS CT Coronary Calcium Scoring LMA (Left Main Artery) = 0 LAD (Left Anterior Descending) = 0 LCX (Left Coronary Circumflex) = 0 RCA (Right Coronary Artery) = 0 Total Calcium Score = 0 using the AJ-130 method. The interpretation of the calcium heart score is based on the following continuum*: 0 = no calcified plaque detected (risk of coronary artery disease is very low ??? less than 5%) 1-10 = calcium detected in extremely minimal levels (risk of coronary diseases is still low ??? less than 10%) 11-100 = mild levels of plaque detected with certainty (mild or minimal narrowing of heart arteries is likely) 101-400 = definite,at least moderate levels of plaque detected (relatively high risk of a heart attack within 3-5 years) >401-999 = extensive levels of plaque detected (high risk of heart attack, high levels of vascular disease are present, high likelihood of at least one significant coronary narrowing) *The calcium heart score quantifies the burden of coronary calcification/plaque in the coronary arteries. The calcium heart score is not able to evaluate the presence or burden of non-calcified (i.e. soft) plaque. There is no identifiable calcification in the aortic valve, mitral annulus or mitral valve, pericardium, or myocardium. Coronary CT Angiography The coronary arterial system is left dominant. Quantitative Stenosis Grading: Left Main (LM): The left main originates normally from the left sinus of Valsalva. The LM bifurcates into the left anterior descending artery and left circumflex artery. The LM is patent with no evidence of atherosclerosis. Left Anterior Descending (LAD) and Diagonal Branches: The LAD gives off 3 diagonal branch(es). The LAD and its branches are patent with no evidence of atherosclerosis. There is no evidence of LAD-myocardial bridge. Left Circumflex (LCX) and Obtuse Marginals (OM): The LCX gives off 2 Obtuse Marginal (OM) branch(es). The LCX and its branches are patent with no evidence of atherosclerosis. Right Coronary Artery (RCA): The RCA originates normally from the right sinus of Valsalva. The RCA and its branches are patent with no evidence of atherosclerosis. Non-Coronary Cardiac Findings: Analysis of the left ventricular (LV) structure and function was performed after 3-D reconstruction of the LV from axial images, with user-corrected automatic contouring for assessment of LV volumes and user-defined reconstruction from oblique planes for measurement of 3-D cardiac structure and function. -The left ventricle systolic function is normal. -There is no left atrial appendage filling defect. Two right pulmonary veins and two left pulmonary veins drain normally into the left atrium. -No pericardial thickening or calcification. -Central and branch pulmonary arteries in the [id number] are unremarkable. -Thoracic aorta within the visualized thoracic aortic-branches in the [id number] is unremarkable. Extracardiac Structures No significant extra-cardiac findings. Note, however, that this study is focused on the cardiac findings. IMPRESSION -Absence of coronary calcification with an Agatston score = 0 using the AJ-130 method. -No evidence of significant flow-limiting atherosclerosis of the coronary arteries. -No evidence of coronary anomalies or myocardial bridges. -CAD-RADS 0. Management recommendations per ACC/AHA guidelines*, as clinically appropriate. *Recommendations: CAD RADS 0: Reassurance. Consider non-atherosclerotic causes of chest pain. CAD RADS 1: Consider non-atherosclerotic causes of chest pain. Consider preventive therapy and risk factor modification. CAD RADS 2: Consider non-atherosclerotic causes of chest pain. Consider preventive therapy and risk factor modification, particularly for patients with nonobstructive plaque in multiple segments. CAD RADS 3: Consider further functional testing. Consider symptom-guided anti-ischemic and preventive pharmacotherapy as well as risk factor modification per published guideline statements. CAD RADS 4A: Consider further functional testing or invasive coronary angiography with revascularization per published guideline statements. Consider symptom-guided anti-ischemic and preventive pharmacotherapy as well as risk factor modification per published guideline statements. CAD RADS 4B: Invasive coronary angiography recommended with revascularization per published guideline statements. Consider symptom-guided anti-ischemic and preventive pharmacotherapy as well as risk factor modification per published guideline statements. CAD RADS 5: Consider invasive angiography and/or viability assessment with revascularization per published guideline statements. Consider symptom-guided anti-ischemic and preventive pharmacotherapy as well as risk factor modification per published guideline statements. CRITICAL RESULT None COMMUNICATION Per this written report The coronary and cardiac findings of this CCTA were reviewed, reported, and signed by Jose Quintana MD ([employer]) Conclusion Electronically signed by : Tsering Quintana MD 03/25/2025 12:33:29
[2025-03-24 10:01] VITALS: BP 130/71; PULSE 61; RESP 16; O2SAT 96
[2025-03-24] MEDS: NITROGLYCERIN 0.4MG SL TABLET SL (10:01)
[2025-03-24 10:03] VITALS: BP 114/66; PULSE 63; RESP 16; O2SAT 96
[2025-03-24 10:07] VITALS: BP 100/54; PULSE 60; RESP 16; O2SAT 96
[2025-03-24 10:15] VITALS: BP 106/54; PULSE 61; RESP 16; O2SAT 98
[2025-03-24] MEDS: 0.9 % SODIUM CHLORIDE 50 ML VIAL IV (10:16)
[2025-03-24] MEDS: SODIUM CHLORIDE 0.9% 10ML SYR (RAD ONLY) 10 ML IV (10:16)
[2025-03-24] MEDS: IOPAMIDOL-370 (76%);100ML BOTTLE 80 ML IV (10:16)
== END 2025-03-24 23:59 | disposition home or self-care (01) ==
PROVIDERS: PCP Internal Medicine; Visit Provider Nurse Practitioner
DX: R94.30 Abnormal result of cardiovascular function study, unspecified (principal); R94.31 Abnormal electrocardiogram [ECG] [EKG]
CPT/HCPCS: 75574; 80048; 84703; Q9967